=== PATIENT | male | born 1955 | race Caucasian/White ===

== ENCOUNTER → 2019-05-05 14:29 | Outpatient (CLI) | payer OTHER, SELFPAY ==
[2019-05-05 16:37] LABS: Absolute Lymphocyte Count 1.53 X10^3/uL (0.83-4.51); Absolute Neutrophil Count 4.3 X10^3/uL (2.0-7.7); Basophil# 0.05 X10^3/uL; Basophil% 0.8 % (0-1); Eosinophil# 0.17 X10^3/uL; Eosinophils% 2.6 % (0-5); Hematocrit 45.2 % (40-54); Hemoglobin 15.2 g/dL (13.0-16.5); Lymphocyte # 1.53 X10^3/ul (4.0); Lymphocyte % 23.4 % (19-41); Mean Corp Hgb Conc 33.6 g/dL (32-36); Mean Corpuscular Hgb 29.5 pg (27.0-32.0); Mean Corpuscular Volume 87.8 fL (80-94); Mean Platelet Vol. 10.3 fl (6.2-12.0); Monocyte# 0.53 X10^3/uL; Monocyte% 8.1 % (0-10); NRBC Flagged by Analyzer 0 % (0-5); Neutrophil # 4.25 X10^3/uL (2.7-7.7); Neutrophil % 64.8 % (47-70); Platelet Count 228 K/mm3 (150-450); RBC Distribution Width CV 12.4 % (11.6-14.6); RBC Distribution Width SD 39.8 fl (35.1-43.9); Red Blood Count 5.15 M/mm3 (4.6-6.2); White Blood Count 6.6 K/mm3 (4.4-11.0)
[2019-05-05 16:59] LABS: Vitamin D,25 Hydroxy 40.1 ng/mL (29.95-100.01)
[2019-05-05 17:06] LABS: ALB/GLOB Ratio 1.3 RATIO (0.9-2.4); AST(SGOT) 24 U/L (15-37); Alanine Aminotransfer ALT/SGPT 50 U/L (16-61); Albumin, Serum 4.1 g/dL (3.2-5.0); Alkaline Phosphatase 74 U/L (45-117); Anion Gap 7 (5-15); BUN 18 mg/dL (7-18); BUN/Creat Ratio 18.3 RATIO (10-20); Calcium,Total 9.1 mg/dL (8.5-10.1); Chloride 105 mmol/L (98-107); Creatinine, Serum 0.98 mg/dL (0.70-1.30); EST Glomerular Filtration Rate 82 mL/min (>60); Est Glom Filt Rate - Afr Amer 99 mL/min (>60); Globulin 3.1 g/dL (2.2-4.2); Glucose 84 mg/dL (74-106); PSA,Total - Annual Screen 2.68 ng/mL (0.00-4.00); Potassium 3.6 mmol/L (3.5-5.1); Protein, Total 7.2 g/dL (6.4-8.2); Sodium Level 141 mmol/L (136-145); Thyroid Stim Hormone (TSH) 1.39 uIU/mL (0.358-3.74)
== END ==
PROVIDERS: Family Provider Family Medicine Geriatric Medicine; PCP Family Medicine Geriatric Medicine; Visit Provider Family Medicine Geriatric Medicine
DX: E55.9 Vitamin D deficiency, unspecified (principal); I10 Essential (primary) hypertension; Z12.5 Encounter for screening for malignant neoplasm of prostate
CPT/HCPCS: 36415; 80053; 82306; 84153; 84443; 85025; G0103

== ENCOUNTER → 2020-06-04 10:47 | Outpatient (CLI) | payer OTHER, SELFPAY ==
[2020-06-04 12:16] LABS: Absolute Neutrophil Count 3.3 X10^3/uL (2.0-7.7); Basophil# 0.05 X10^3/uL; Basophil% 0.9 % (0-1); Eosinophils% 3.7 % (0-5); Hematocrit 47.1 % (40-54); Hemoglobin 15.7 g/dL (13.0-16.5); Lymphocyte % 27.6 % (19-41); Mean Corp Hgb Conc 33.3 g/dL (32-36); Mean Corpuscular Hgb 28.6 pg (27.0-32.0); Mean Corpuscular Volume 85.9 fL (80-94); Mean Platelet Vol. 10.4 fl (6.2-12.0); Monocyte# 0.35 X10^3/uL; Monocyte% 6.4 % (0-10); NRBC Flagged by Analyzer 0 % (0-5); Neutrophil # 3.33 X10^3/uL (2.7-7.7); Neutrophil % 61.2 % (47-70); Platelet Count 224 K/mm3 (150-450); RBC Distribution Width CV 12.6 % (11.6-14.6); RBC Distribution Width SD 39.8 fl (35.1-43.9); Red Blood Count 5.48 M/mm3 (4.6-6.2); White Blood Count 5.4 K/mm3 (4.4-11.0)
[2020-06-04 12:41] LABS: ALB/GLOB Ratio 1.3 RATIO (0.9-2.4); AST(SGOT) 21 U/L (15-37); Alanine Aminotransfer ALT/SGPT 65 U/L (16-61); Albumin, Serum 4.2 g/dL (3.2-5.0); Alkaline Phosphatase 69 U/L (45-117); Anion Gap 7 (5-15); BUN 15 mg/dL (7-18); BUN/Creat Ratio 15.5 RATIO (10-20); Chloride 106 mmol/L (98-107); Creatinine, Serum 0.97 mg/dL (0.70-1.30); EST Glomerular Filtration Rate 83 mL/min (>60); Est Glom Filt Rate - Afr Amer 100 mL/min (>60); Globulin 3.3 g/dL (2.2-4.2); Glucose 83 mg/dL (74-106); PSA,Total - Annual Screen 2.72 ng/mL (0.00-4.00); Potassium 3.3 mmol/L (3.5-5.1); Protein, Total 7.5 g/dL (6.4-8.2); Sodium Level 139 mmol/L (136-145); Thyroid Stim Hormone (TSH) 2.18 uIU/mL (0.358-3.74)
[2020-06-09 15:22] LABS: Vitamin D,25 Hydroxy 82.3 ng/mL
== END ==
PROVIDERS: PCP Family Medicine Geriatric Medicine; Visit Provider Family Medicine Geriatric Medicine
DX: I10 Essential (primary) hypertension (principal); Z12.5 Encounter for screening for malignant neoplasm of prostate
CPT/HCPCS: 36415; 80053; 82306; 84153; 84443; 85025; G0103

== ENCOUNTER → 2021-06-06 08:59 | Outpatient (CLI) | payer MEDICARE, SELFPAY ==
[2021-06-06 12:30] LABS: Absolute Lymphocyte Count 1.58 X10^3/uL (0.83-4.51); Absolute Neutrophil Count 3.8 X10^3/uL (2.0-7.7); Basophil# 0.06 X10^3/uL; Eosinophil# 0.18 X10^3/uL; Eosinophils% 2.9 % (0-5); Hematocrit 42.3 % (40-54); Hemoglobin 14.6 g/dL (13.0-16.5); Lymphocyte # 1.58 X10^3/ul (0.83-4.51); Lymphocyte % 25.7 % (19-41); Mean Corp Hgb Conc 34.5 g/dL (32-36); Mean Corpuscular Hgb 29.5 pg (27.0-32.0); Mean Corpuscular Volume 85.5 fL (80-94); Mean Platelet Vol. 9.8 fl (6.2-12.0); Monocyte# 0.54 X10^3/uL; Monocyte% 8.8 % (0-10); NRBC Flagged by Analyzer 0 % (0-5); Neutrophil # 3.76 X10^3/uL (2.7-7.7); Neutrophil % 61.1 % (47-70); Platelet Count 252 K/mm3 (150-450); RBC Distribution Width CV 12.1 % (11.6-14.6); RBC Distribution Width SD 37.6 fl (35.1-43.9); Red Blood Count 4.95 M/mm3 (4.6-6.2); White Blood Count 6.2 K/mm3 (4.4-11.0)
[2021-06-06 12:57] LABS: Vitamin D,25 Hydroxy 40.3 ng/mL
[2021-06-06 13:18] LABS: ALB/GLOB Ratio 0.9 RATIO (0.9-2.4); AST(SGOT) 21 U/L (15-37); Alanine Aminotransfer ALT/SGPT 39 U/L (16-61); Albumin, Serum 3.6 g/dL (3.2-5.0); Alkaline Phosphatase 96 U/L (45-117); Anion Gap 6 (5-15); BUN 15 mg/dL (7-18); Calcium,Total 9.5 mg/dL (8.5-10.1); Chloride 105 mmol/L (98-107); EST Glomerular Filtration Rate 80 mL/min (>60); Est Glom Filt Rate - Afr Amer 96 mL/min (>60); Glucose 84 mg/dL (74-106); PSA,Total - Annual Screen 3.04 ng/mL (0.00-4.00); Potassium 3.8 mmol/L (3.5-5.1); Protein, Total 7.6 g/dL (6.4-8.2); Sodium Level 138 mmol/L (136-145); Thyroid Stim Hormone (TSH) 2.78 uIU/mL (0.358-3.74)
== END ==
PROVIDERS: PCP Family Medicine Geriatric Medicine; Visit Provider Family Medicine Geriatric Medicine
DX: E55.9 Vitamin D deficiency, unspecified (principal); I10 Essential (primary) hypertension; Z12.5 Encounter for screening for malignant neoplasm of prostate
CPT/HCPCS: 36415; 80053; 82306; 84153; 84443; 85025; G0103

== ENCOUNTER → 2022-06-07 | Outpatient (CLI) | payer MEDICARE, SELFPAY ==
[2022-06-07 14:07] LABS: Absolute Lymphocyte Count 1.61 X10^3/uL (0.83-4.51); Absolute Neutrophil Count 2.9 X10^3/uL (2.0-7.7); Basophil# 0.06 X10^3/uL; Basophil% 1.2 % (0-1); Eosinophil# 0.14 X10^3/uL; Eosinophils% 2.7 % (0-5); Hematocrit 45.5 % (40-54); Lymphocyte # 1.61 X10^3/ul (0.83-4.51); Mean Corp Hgb Conc 35.2 g/dL (32-36); Mean Corpuscular Hgb 30.7 pg (27.0-32.0); Mean Corpuscular Volume 87.2 fL (80-94); Mean Platelet Vol. 10.3 fl (6.2-12.0); Monocyte# 0.46 X10^3/uL; Monocyte% 8.8 % (0-10); NRBC Flagged by Analyzer 0 % (0-5); Neutrophil # 2.91 X10^3/uL (2.7-7.7); Neutrophil % 55.9 % (47-70); Platelet Count 212 K/mm3 (150-450); RBC Distribution Width SD 41.5 fl (35.1-43.9); Red Blood Count 5.22 M/mm3 (4.6-6.2); White Blood Count 5.2 K/mm3 (4.4-11.0)
[2022-06-07 14:30] LABS: Vitamin D,25 Hydroxy 33.5 ng/mL
[2022-06-07 14:33] LABS: ALB/GLOB Ratio 1.1 RATIO (0.9-2.4); AST(SGOT) 18 U/L (15-37); Alanine Aminotransfer ALT/SGPT 44 U/L (16-61); Albumin, Serum 3.8 g/dL (3.2-5.0); Alkaline Phosphatase 73 U/L (45-117); Anion Gap 3 (5-15); BUN 16 mg/dL (7-18); BUN/Creat Ratio 17.6 RATIO (10-20); Calcium,Total 9.5 mg/dL (8.5-10.1); Chloride 107 mmol/L (98-107); Creatinine, Serum 0.91 mg/dL (0.70-1.30); EST Glomerular Filtration Rate 89 mL/min (>60); Est Glom Filt Rate - Afr Amer 107 mL/min (>60); Globulin 3.6 g/dL (2.2-4.2); Glucose 77 mg/dL (74-106); PSA,Total - Annual Screen 2.56 ng/mL (0.00-4.00); Potassium 3.7 mmol/L (3.5-5.1); Protein, Total 7.4 g/dL (6.4-8.2); Sodium Level 141 mmol/L (136-145); Thyroid Stim Hormone (TSH) 3.13 uIU/mL (0.358-3.74)
== END | disposition home or self-care (01) ==
PROVIDERS: PCP Family Medicine Geriatric Medicine; Visit Provider Family Medicine Geriatric Medicine
DX: I10 Essential (primary) hypertension (principal); E55.9 Vitamin D deficiency, unspecified; Z12.5 Encounter for screening for malignant neoplasm of prostate
CPT/HCPCS: 36415; 80053; 82306; 84153; 84443; 85025; G0103

== ENCOUNTER → 2022-06-13 | Outpatient (CLI) | payer MEDICARE, OTHER, SELFPAY ==
--- NOTE | 2022-06-13 09:50 | LES_PTH ---
PATIENT: MERCEDES MACIAS LOC: POL[facility] U#:[id number] AGE/SX: 66/M ROOM: RE06/13/[address]: Dr. Devon Leigh MD : 1955 BED: DIS: 06/13/2022 SPEC #: [id number] RECD: 06/13/22 11:04 STATUS: LINDY OVIDIO #: [id number] LORENZA: 06/13/22 09:[address]: Devon Leigh Chi DEPT: SURGICAL PATHOLOGY RECD BY: Griselda Raya Tissues: A - Skin of leg, NOS B - Skin of leg, NOS Procedures: Surgery Specimen Level IV HEADER OPERATION: Not noted PRE-OP DIAGNOSIS: Disorder of skin and subcutaneous tissue, unspecified L98.9 TISSUE SUBMITTED: A. Right leg, B. Left leg MICROSCOPIC DIAGNOSIS A. Right leg, biopsy: Seborrheic keratosis. B. Left leg, biopsy: Basal cell carcinoma. See comment. /GRICELDA 06/14/22 COMMENT B. The tumor is present very close to the deep margin of the specimen and focally suspicious for presence of tumor. Correlation with clinical findings and appropriate follow up are necessary. MICROSCOPIC DESCRIPTION Slides are reviewed. GROSS DESCRIPTION A. Received in fixative is one container labeled with the patient's name and designated right leg tissue. The specimen consists of an irregular piece of kimball white skin measuring 1 x 0.8 x 0.1. A kimball brown lesion is noted measuring 0.8 x 0.5 cm. The specimen is inked, serially sectioned and submitted entirely in one cassette. B. Received in fixative is one container labeled with the patient's name and designated left leg tissue. The specimen consists of an irregular piece of kimball white skin measuring 1 x 0.5 x 0.1. A kimball white lesion is noted measuring 0.5 x 0.5 cm. The specimen is inked, serially sectioned and submitted entirely in one cassette. /GRICELDA:nam 06/13/2022 TC:0 CPT:52886 x 2
== END | disposition home or self-care (01) ==
LOC: POLAB3 10:25
PROVIDERS: PCP Family Medicine Geriatric Medicine; Visit Provider Family Medicine Geriatric Medicine
DX: C44.719 Basal cell carcinoma of skin of left lower limb, including hip (principal)
CPT/HCPCS: 88305

== ENCOUNTER → 2023-06-13 | Outpatient (CLI) | payer MEDICARE, OTHER, SELFPAY ==
[2023-06-13 11:10] LABS: Absolute Neutrophil Count 2.8 X10^3/uL (2.0-7.7); Basophil# 0.07 X10^3/uL; Basophil% 1.3 % (0-1); Eosinophil# 0.17 X10^3/uL; Eosinophils% 3.3 % (0-5); Hemoglobin 15.2 g/dL (13.0-16.5); Lymphocyte % 32.7 % (19-41); Mean Corpuscular Hgb 28.8 pg (27.0-32.0); Mean Corpuscular Volume 87.1 fL (80-94); Mean Platelet Vol. 10.4 fl (6.2-12.0); Monocyte# 0.48 X10^3/uL; Monocyte% 9.2 % (0-10); NRBC Flagged by Analyzer 0 % (0-5); Neutrophil # 2.76 X10^3/uL (2.7-7.7); Neutrophil % 53.1 % (47-70); Platelet Count 211 K/mm3 (150-450); RBC Distribution Width CV 12.7 % (11.6-14.6); RBC Distribution Width SD 40.3 fl (35.1-43.9); Red Blood Count 5.28 M/mm3 (4.6-6.2); White Blood Count 5.2 K/mm3 (4.4-11.0)
[2023-06-13 11:16] LABS: Vitamin D,25 Hydroxy 37.1 ng/mL
[2023-06-13 11:22] LABS: ALB/GLOB Ratio 1.2 RATIO (0.9-2.4); AST(SGOT) 24 U/L (15-37); Alanine Aminotransfer ALT/SGPT 53 U/L (16-61); Alkaline Phosphatase 74 U/L (45-117); Anion Gap 3 (5-15); BUN 12 mg/dL (7-18); Calcium,Total 9.4 mg/dL (8.5-10.1); Chloride 107 mmol/L (98-107); EST Glomerular Filtration Rate 79 mL/min (>60); Est Glom Filt Rate - Afr Amer 96 mL/min (>60); Globulin 3.4 g/dL (2.2-4.2); Glucose 92 mg/dL (74-106); PSA,Total - Annual Screen 2.75 ng/mL (0.00-4.00); Potassium 3.9 mmol/L (3.5-5.1); Protein, Total 7.4 g/dL (6.4-8.2); Sodium Level 141 mmol/L (136-145); Thyroid Stim Hormone (TSH) 3.04 uIU/mL (0.358-3.74)
== END | disposition home or self-care (01) ==
LOC: POLAB3 09:04
PROVIDERS: PCP Family Medicine Geriatric Medicine; Visit Provider Family Medicine Geriatric Medicine
DX: I10 Essential (primary) hypertension (principal); E55.9 Vitamin D deficiency, unspecified; Z12.5 Encounter for screening for malignant neoplasm of prostate
CPT/HCPCS: 36415; 80053; 82306; 84153; 84443; 85025; G0103

== ENCOUNTER → 2023-12-17 | Outpatient (CLI) | payer MEDICARE, OTHER, SELFPAY ==
[2023-12-17 17:10] LABS: Absolute Lymphocyte Count 2.03 X10^3/uL (0.83-4.51); Absolute Neutrophil Count 2.7 X10^3/uL (2.0-7.7); Basophil# 0.06 X10^3/uL; Basophil% 1.1 % (0-1); Eosinophil# 0.21 X10^3/uL; Eosinophils% 3.8 % (0-5); Hemoglobin 14.4 g/dL (13.0-16.5); Lymphocyte # 2.03 X10^3/ul (0.83-4.51); Lymphocyte % 36.9 % (19-41); Mean Corp Hgb Conc 33.5 g/dL (32-36); Mean Corpuscular Hgb 28.6 pg (27.0-32.0); Mean Corpuscular Volume 85.5 fL (80-94); Mean Platelet Vol. 9.8 fl (6.2-12.0); Monocyte# 0.49 X10^3/uL; Monocyte% 8.9 % (0-10); NRBC Flagged by Analyzer 0 % (0-5); Neutrophil % 49.1 % (47-70); Platelet Count 199 K/mm3 (150-450); RBC Distribution Width CV 12.8 % (11.6-14.6); RBC Distribution Width SD 39.4 fl (35.1-43.9); Red Blood Count 5.03 M/mm3 (4.6-6.2); White Blood Count 5.5 K/mm3 (4.4-11.0)
--- NOTE | 2023-12-17 17:11 | RAD_ITS ---
STUDY: X-RAY CHEST REASON FOR EXAM: Male, 68 years old. SOB TECHNIQUE: PA and lateral views of the chest. COMPARISON: None. FINDINGS: The lungs are clear and expanded. There is no demonstrated pleural abnormality. Normal size heart. Normal mediastinum and glen. Normal visualized pulmonary arteries. Normal visualized aortic arch and descending thoracic aorta. Normal visualized thoracic spine. Normal visualized ribs, clavicles, and shoulders. There is no demonstrated abnormality of the visualized soft tissue structures of the upper abdomen. RAD/Chest PA and Lateral IMPRESSION: Normal x-ray examination of the chest. Electronically Signed: Faisal Alexis MD at 21:47 EDT ,
[2023-12-17 17:37] LABS: BNP,B-Type NATRIURETIC PEPTIDE 55.8 pg/mL (0-100)
[2023-12-17 17:42] LABS: D-Dimer Quantitative (DVT/PE) < 0.27 FEU/ug/m (0.27-0.49)
[2023-12-17 17:43] LABS: ALB/GLOB Ratio 1.2 RATIO (0.9-2.4); AST(SGOT) 27 U/L (15-37); Alanine Aminotransfer ALT/SGPT 53 U/L (16-61); Albumin, Serum 4.1 g/dL (3.2-5.0); Alkaline Phosphatase 71 U/L (45-117); Anion Gap 5 (5-15); BUN 16 mg/dL (7-18); BUN/Creat Ratio 16.3 RATIO (10-20); CPK Total, Creatine Kinase 248 U/L (39-308); Calcium,Total 9.3 mg/dL (8.5-10.1); Chloride 106 mmol/L (98-107); Creatinine, Serum 0.98 mg/dL (0.70-1.30); EST Glomerular Filtration Rate 80 mL/min (>60); Est Glom Filt Rate - Afr Amer 97 mL/min (>60); Globulin 3.5 g/dL (2.2-4.2); Glucose 86 mg/dL (74-106); Potassium 3.6 mmol/L (3.5-5.1); Protein, Total 7.6 g/dL (6.4-8.2); Sodium Level 139 mmol/L (136-145); Troponin-I HS 10 pg/mL (3.0-78.0)
== END | disposition home or self-care (01) ==
PROVIDERS: PCP Family Medicine Geriatric Medicine; Referring Provider Family Medicine Geriatric Medicine; Visit Provider Family Medicine Geriatric Medicine
DX: R06.02 Shortness of breath (principal); R07.9 Chest pain, unspecified
CPT/HCPCS: 36415; 71046; 80053; 82550; 83880; 84484; 85025; 85379

== ENCOUNTER → 2023-12-20 | Outpatient (CLI) | payer MEDICARE, OTHER, SELFPAY | END | disposition home or self-care (01) | LOC: PSN 12:35 | PROVIDERS: PCP Family Medicine Geriatric Medicine; Referring Provider Family Medicine Geriatric Medicine; Visit Provider Family Medicine Geriatric Medicine | DX: R06.02 Shortness of breath (principal) | CPT/HCPCS: 94060; 94726; 94729 ==

== ENCOUNTER → 2024-01-03 | Outpatient (CLI) | payer MEDICARE, OTHER, SELFPAY ==
--- NOTE | 2024-01-03 06:56 | ECHOD_ITS ---
Reason For Study: SOB Procedure This was a 2D Doppler, Color Flow transthoracic echocardiogram. Exam performed in department. Left Ventricle Mild concentric left ventricular hypertrophy. Normal LV size. The left ventricular ejection fraction is 65 %. Normal diastology for age. Right Ventricle Normal right ventricle. Atria The left atrium is mildly enlarged. Mitral Valve Trivial mitral valve insufficiency. Tricuspid Valve Trivial tricuspid valve insufficiency. Unable to estimate RV systolic pressure due to insufficient tricuspid regurgitant envelope. Aortic Valve Aortic sclerosis, no stenosis. Pulmonic Valve The pulmonic valve is not well visualized. Great Vessels Normal sized aortic root. Pericardium/Pleural No pericardial effusion. MMode/2D Measurements & Calculations LVIDd: 4.5 cm IVSd: 1.2 cm Ao root diam: 3.5 cm LVIDs: 2.9 cm LVPWd: 1.2 cm RVDd: 3.3 cm FS: 35.0 % LAV(MOD-bp): 82.4 ml LVAd ap4: 34.0 cm2 LVAd ap2: 28.9 cm2 LAV(MOD-bp) Indexed: 36.4 ml/m2 LVLd ap4: 8.0 cm LVLd ap2: 8.3 cm LAV(MOD-sp2): 75.9 ml EDV(MOD-sp4): 118.5 ml EDV(MOD-sp2): 81.5 ml LAV(MOD-sp4): 85.3 ml EDV(sp4-el): 122.4 ml EDV(sp2-el): 85.6 ml LVAs ap4: 16.3 cm2 LVAs ap2: 14.5 cm2 LVLs ap4: 6.4 cm LVLs ap2: 6.7 cm ESV(MOD-sp4): 34.8 ml ESV(MOD-sp2): 26.7 ml ESV(sp4-el): 35.3 ml ESV(sp2-el): 26.5 ml EF(MOD-sp4): 70.6 % EF(MOD-sp2): 67.2 % EF(sp4-el): 71.2 % SV(MOD-sp4): 83.7 ml SV(MOD-sp2): 54.8 ml SV(sp4-el): 87.2 ml LA dimension(2D): 4.4 cm LA A4 area: 24.7 cm2 RA A4 area: 17.4 cm2 TAPSE: 2.5 cm Time Measurements MV dec time: 0.15 sec Doppler Measurements & Calculations MV E max rj: 69.5 cm/sec Lat Peak E' Rj: 8.3 cm/sec Med Peak E' Rj: 7.9 cm/sec MV A max rj: 53.7 cm/sec E/E' lat: 8.4 E/E' med: 8.8 MV E/A: 1.3 MV V2 max: 95.1 cm/sec MV P1/2t max rj: 96.0 cm/sec Ao V2 max: 114.9 cm/sec MV max P.6 mmHg MV P1/2t: 54.9 msec Ao max P.3 mmHg MV V2 mean: 43.3 cm/sec MV dec slope: 512.2 cm/sec2 Ao V2 mean: 81.2 cm/sec MV mean P.94 mmHg Ao mean P.9 mmHg MV V2 VTI: 25.4 cm MVA(P1/2t): 4.0 cm2 Ao V2 VTI: 28.3 cm AV (velocity ratio): 0.83 LV V1 max: 100.1 cm/sec PA V2 max: 101.8 cm/sec LV V1 max P.0 mmHg PA V2 mean: 78.9 cm/sec LV V1 mean P.3 mmHg LV V1 mean: 72.2 cm/sec LV V1 VTI: 23.4 cm ECHO/Echo Complete Interpretation Summary Mild concentric left ventricular hypertrophy. The left ventricular ejection fraction is 65 %. The left atrium is mildly enlarged. Aortic sclerosis, no stenosis. Ordering Physician: Devon Leigh Chi Referring Physician: Devon Leigh Chi Performed By: Lynn Rosenthal, DURAN, RVT
--- NOTE | 2024-01-03 12:10 | STRESSREP ---
Stress Test Report Date: 01/03/2024 Procedure: Exercise tolerance test/imaging study Indications: Dyspnea Consent: Per the patient Procedure: The patient exercised on a Gerardo protocol for 6 minutes achieving a peak heart rate of 142 bpm (93% predicted maximal heart rate) with a peak blood pressure 220/72 mmHg and a peak MET capacity of 7.0 METs. The baseline ECG demonstrated sinus rhythm with nonspecific ST changes in inferior leads. The peak exercise ECG demonstrated ischemic ST-T wave changes in inferior and lateral leads. There were no cardiac dysrhythmias pretest, during exercise, or recovery. The functional capacity was considered average. There was no complaint of chest discomfort during exercise or recovery. The examination was discontinued secondary to dyspnea. The patient was injected with 14.1 mCi of technetium 99m Cardiolite and subsequently rest SPECT Cardiolite nuclear imaging was obtained in the horizontal long, vertical long, and short axis views. Post-exercise, the patient was injected with 44.3 mCi of technetium 99m Cardiolite and subsequently stress SPECT Cardiolite nuclear imaging was obtained in the horizontal long, vertical long, and short axis views. A gated Cardiolite study at peak stress was obtained. Rest and stress SPECT Cardiolite nuclear imaging status post realignment, normalization, and attenuation correction, demonstrates small to moderate size reversible basal inferior and apical defect. There is end systolic thickening and brightening. The gated Cardiolite study demonstrates myocardial thickening and inward wall motion. The reported LVEF is 70%. Impression: 1. Technically adequate (percent predicted maximal heart rate greater than 85%) exercise tolerance test 2. Peak exercise ECG with positive ischemic changes 3. There were no cardiac dysrhythmias pretest, during exercise, or recovery 4. Rest and stress SPECT Cardiolite nuclear imaging demonstrate small to moderate reversible basal inferior and apical perfusion defect suggestive of ischemia. 5. The gated Cardiolite study reports an LVEF of 70%. This note was generated with simplifyMDation software. It may contain incorrect words, spelling, and punctuation that were not noted in checking the note before signing.
== END | disposition home or self-care (01) ==
LOC: CVS 06:56
PROVIDERS: PCP Family Medicine Geriatric Medicine; Referring Provider Family Medicine Geriatric Medicine; Visit Provider Family Medicine Geriatric Medicine
DX: R06.02 Shortness of breath (principal); R07.9 Chest pain, unspecified
CPT/HCPCS: 78452; 93017; 93306; A9500; A4216

== ENCOUNTER → 2024-01-10 | Outpatient (CLI) | payer MEDICARE, OTHER, SELFPAY ==
--- NOTE | 2024-01-10 14:03 | RAD_ITS ---
STUDY: X-RAY CHEST REASON FOR EXAM: Male, 68 years old. Catheterization. TECHNIQUE: Frontal and lateral views of the chest. COMPARISON: December 17, 2023 FINDINGS: The lungs are clear and expanded. There is no demonstrated pleural abnormality. Normal size heart. Normal mediastinum and glen. Normal visualized pulmonary arteries. Normal visualized aortic arch and descending thoracic aorta. Stable diffuse mild thoracic spondylosis. Normal visualized ribs, clavicles, and shoulders. No abnormality of the visualized soft tissue structures of the upper abdomen. RAD/Chest PA and Lateral IMPRESSION: Stable chest with no acute or active cardiopulmonary disease. Electronically Signed: Anival Mejia MD at 14:51 EDT ,
[2024-01-10 14:35] LABS: Basophil# 0.05 X10^3/uL; Basophil% 0.9 % (0-1); Eosinophils% 3.7 % (0-5); Hematocrit 42.2 % (40-54); Hemoglobin 14.4 g/dL (13.0-16.5); Lymphocyte % 29.7 % (19-41); Mean Corp Hgb Conc 34.1 g/dL (32-36); Mean Corpuscular Hgb 28.9 pg (27.0-32.0); Mean Corpuscular Volume 84.7 fL (80-94); Mean Platelet Vol. 9.5 fl (6.2-12.0); Monocyte# 0.49 X10^3/uL; Monocyte% 9.1 % (0-10); NRBC Flagged by Analyzer 0 % (0-5); Neutrophil # 3.03 X10^3/uL (2.7-7.7); Neutrophil % 56.4 % (47-70); Platelet Count 193 K/mm3 (150-450); RBC Distribution Width CV 12.6 % (11.6-14.6); RBC Distribution Width SD 38.6 fl (35.1-43.9); Red Blood Count 4.98 M/mm3 (4.6-6.2); White Blood Count 5.4 K/mm3 (4.4-11.0)
[2024-01-10 16:10] LABS: Anion Gap 8 (5-15); BUN 19 mg/dL (7-18); BUN/Creat Ratio 18.6 RATIO (10-20); Calcium,Total 9.3 mg/dL (8.5-10.1); Chloride 105 mmol/L (98-107); Creatinine, Serum 1.02 mg/dL (0.70-1.30); EST Glomerular Filtration Rate 77 mL/min (>60); Est Glom Filt Rate - Afr Amer 93 mL/min (>60); Glucose 121 mg/dL (74-106); Potassium 3.4 mmol/L (3.5-5.1); Sodium Level 137 mmol/L (136-145)
== END | disposition home or self-care (01) ==
LOC: RAD 14:03
PROVIDERS: PCP Family Medicine Geriatric Medicine; Referring Provider Internal Medicine Cardiovascular Disease; Visit Provider Internal Medicine Cardiovascular Disease
DX: R07.9 Chest pain, unspecified (principal); I25.10 Atherosclerotic heart disease of native coronary artery without angina pectoris
CPT/HCPCS: 36415; 71046; 80048; 85025

== ENCOUNTER 2024-01-21 09:19 | Day surgery (SDC) | payer MEDICARE, OTHER, SELFPAY ==
[2024-01-18 09:19] VITALS: BMI 28.8
--- NOTE | 2024-01-21 11:56 | CL.D_ITS ---
Patient Name: MERCEDES MACIAS [facility] Study Date: 01/21/2024 Performing: Moe Quevedo MD Ht: 74 inches 187.96 cm : 1955 Wt: 223.99 lbs 101.6 kg Age: 68 Gender: male BSA: 2.28 PROCEDURE(S) PERFORMED DC01-(94173)LHC/COR/LV CLINICAL PROFILE AND INDICATIONS Indications: Suspected CAD Heart Failure: None Stress/Imaging Date: 01/09/24Stress Test with SPECT MPI: Positive Intermediate Risk CAD Presentations: Stable angina. CONCLUSIONS Triple-vessel disease involving the proximal right coronary artery, prominent obtuse marginal branch, and 2 diagonal vessels. RECOMMENDATIONS Will discuss multivessel PCI versus coronary bypass surgery. DESCRIPTION OF PROCEDURE The patient arrived to the procedure lab. The risks and benefits of the procedure as well as a full description of our services here and current unavailability of surgical backup were fully explained to the patient and/or their significant other prior to the catheterization. The Timeout was completed, verifying the correct patient and procedure. The patient's procedural site was prepped and draped in the usual fashion. Local anesthetic was given subcutaneously to right radial region with Lidocaine 2%. Using a modified Seldinger technique, arterial access was obtained via the right radial artery, a 6Fr sheath was inserted. Right Coronary Artery selective angiography was then performed in multiple views using a 5 Fr. 4.0 [place] catheter. Left Coronary Artery selective angiography was performed in multiple views using a 5 Fr. JL3.5 catheter. Left Ventriculography was performed in PEÑA projection using a 5 Fr. Pigtail catheter. LV to AO pullback pressures were then recorded. CORONARY ANGIOGRAPHY DOMINANCE: Co- Dominant LEFT HEART ASSESSMENT Left Ventricular Ejection Fraction: by LV Gram 55 % Normal LV wall motion Normal Left Ventricular systolic function LEFT MAIN: Angiographically normal LEFT ANTERIOR DESCENDING ARTERY: Medium size vessel with 2 diagonal branches with the first having an ostial 60% and a proximal 70 to 80%, and the second diagonal vessel with proximal 70% stenosis. The left anterior descending artery itself has areas of approximately 50% stenosis present. CIRCUMFLEX ARTERY: Nondominant but medium size vessel with the first obtuse marginal branch with 70% proximal and mid 90% stenosis and a diffusely diseased distal circumflex and AV groove branch with mild diffuse disease RIGHT CORONARY ARTERY: Codominant right coronary artery with proximal 80% stenosis mid 60% stenosis and diffuse distal mild disease. COMPLICATIONS PROCEDURE MEDICATIONS Versed 1 mg IV Fentanyl 50 mcg IV Versed 1 mg IV Oxygen: 2 L/min via nasal cannula SUMMARY OF HEMODYNAMIC DATA Time AIR REST ECG 09:49:32 AO 142/71 (98) SA 11:23:39 LV 140/8, 19 11:39:06 LV 137/8, 19 11:39:15 LV 0/23, 0 11:40:01 LV 125/6, 19 11:40:09 LVp 131/7, 19 11:40:16 AOp 141/57 (90) 11:40:23 Signed By Moe Quevedo MD On 01/21/2024 11:55:47 Moe Quevedo MD
== END 2024-01-21 13:40 | disposition home or self-care (01) ==
PROVIDERS: PCP Family Medicine Geriatric Medicine; Referring Provider Internal Medicine Cardiovascular Disease; Visit Provider Internal Medicine Cardiovascular Disease
DX: I25.118 Atherosclerotic heart disease of native coronary artery with other forms of angina pectoris (principal); Z79.82 Long term (current) use of aspirin; Z79.899 Other long term (current) drug therapy; I10 Essential (primary) hypertension; E78.00 Pure hypercholesterolemia, unspecified; Z87.891 Personal history of nicotine dependence; R94.39 Abnormal result of other cardiovascular function study; Z79.02 Long term (current) use of antithrombotics/antiplatelets
CPT/HCPCS: 36415; 84132; 93458; 99152; 99153; J7040; Q9967; C1769; C1894

== ENCOUNTER 2024-02-08 11:28 | Observation (INO) | payer MEDICARE, OTHER, SELFPAY ==
[2024-02-07 08:06] VITALS: BMI 28.8
--- NOTE | 2024-02-08 09:50 | EKG12_ITS ---
Test Reason : POST PCI Blood Pressure : / mmHG Vent. Rate : 051 BPM Atrial Rate : 051 BPM P-R Int : 214 ms QRS Dur : 086 ms QT Int : 422 ms P-R-T Axes : 053 -25 -15 degrees QTc Int : 388 ms Sinus bradycardia with 1st degree A-V block Otherwise normal ECG When compared with ECG of 09-FEB-2024 05:28, Premature ventricular complexes are no longer Present Confirmed by SALBADOR BRENNER, LIS ([id number]), manager editorial BETSY CLARK ([id number]) on 02/29/2024 9:41:23 AM Referred By: Hannah Freeman Confirmed By:SANA FREEMAN MD
--- NOTE | 2024-02-08 11:30 | EKG12_ITS ---
Test Reason : Blood Pressure : / mmHG Vent. Rate : 064 BPM Atrial Rate : 064 BPM P-R Int : 220 ms QRS Dur : 088 ms QT Int : 396 ms P-R-T Axes : 049 -39 -01 degrees QTc Int : 408 ms Sinus rhythm with 1st degree A-V block Left axis deviation Abnormal ECG When compared with ECG of 08-FEB-2024 09:50, MANUAL COMPARISON REQUIRED, DATA IS UNCONFIRMED Confirmed by SALBADOR BRENNER, LIS ([id number]), desk editor BETSY CLARK ([id number]) on 02/13/2024 10:06:24 AM Referred By: Hannah Freeman Confirmed By:SANA FREEMAN MD
--- NOTE | 2024-02-08 11:39 | CRPHASE1 ---
Patient Communication Patient Information Former Patient:: Phase I PHII Cardiac Rehab Discussed with Patient:: Yes Guide to Cardiac Rehab Given to Patient:: Yes Cardiac Rehab Facility Choice List Given to Patient:: Yes Communication to Cardiac Rehab Janitorial Tech:: Hannah Freeman Sessions:: 36 sessions - 3 days/wk, 12 weeks Cardiac Rehabilitation Info Program Information Cardiac Rehabilitation Program Information: Cardiac Rehab The cardiac rehab team at [facility] consists of highly skilled exercise physiologists, nurses, respiratory therapists and physicians working together with you. Our purpose is to help you have a full recovery and achieve the goals you set for yourself. Over the years many of our patients have returned to activities they assumed they would never do again! We can help restore your confidence and motivation to make lifestyle changes that can have a significant impact on your health and quality of life! We can help answer questions and concerns you may have about exercise, lifestyle, medications, diet, stress and anxiety which are common following a hospitalization. WE monitor ECG and vital signs during exercise and discuss your progress with you and report to your physician(s). Cardiac Rehab is proven to help reduce readmissions, improve functional capacity and lower recurrence of problems with your heart. Our Cardiac Rehab program is Certified by the [place] [employer]-Vascular and Pulmonary [employer] (AACVPR) and Accredited by the [place] [employer] through our [facility]. You can contact us at . We invite you to call us with your questions or to get started in our program. If you have other questions or concerns be sure to ask your physician/provider during your follow-up visit. WE look forward to seeing you!
--- NOTE | 2024-02-08 11:39 | CRPH1.INSTRU ---
General Education Discussed with Patient CAD and cardiac anatomy and function:: Patient communicates acknowledgment Explanation of diagnoses and procedures:: Patient communicates acknowledgment Sign/Symptoms of NC:: Patient communicates acknowledgment Antiplatelet therapy: Patient communicates acknowledgment Proper use of NTG-SL: Patient communicates acknowledgment Emergency procedures and activation of EMS: Patient communicates acknowledgment Compliance of all prescribed medications: Patient communicates acknowledgment Smoking Risk Factors Patient Nicotine/Smoking Risk Factors Are:: Non-smoker Response Code Nicotine/Smoking Response Code:: Patient communicates acknowledgment Dyslipidemia Recommendations Recommendations Include:: Lipid profile not available Response Code Dyslipidemia Response Code:: Patient communicates acknowledgment Overweight/Obesity Risk Factors Patient Overweight/Obesity Risk Factors Are:: BMI Normal [24-29 & > 65 years old] Response Code Overweight/Obesity:: Patient communicates acknowledgment Hypertension Recommendations Recommendations Include:: Maintain BP <130/85 Response Code Hypertension:: Patient communicates acknowledgment Heart Disease Recommendations Recommendations Include:: Educated family members of their risk and Educated family members of importance of prevention of heart disease Response Code Heart Disease Response Code:: Patient communicates acknowledgment Diabetes Risk Factors Patient Diabetes Risk Factors Are:: No documented hx of diabetes Response Code Diabetes:: Patient communicates acknowledgment Metabolic Syndrome Recommendations Recommendations Include:: Does not meet criteria Sedentary Recommendations Recommendations Include:: Monitored Outpatient Cardiac Rehab Response Code Sedentary Response Code:: Patient communicates acknowledgment Stress Recommendations Recommendations Include:: Identification of stressors, and assessment of coping skills and Stress management techniques Response Code Stress Response Code:: Patient communicates acknowledgment
--- NOTE | 2024-02-08 11:47 | CL.I_ITS ---
Patient Name: MERCEDES MACIAS [facility] Study Date: 02/08/2024 Performing: Tree Freeman MD Ht: 74 inches 187.96 cm : 1955 Wt: 223.99 lbs 101.6 kg Age: 68 Gender: male BSA: 2.28 PROCEDURE(S) PERFORMED IC12-(81668/C9600)FREDY W/WO PTCA, SINGLE CORONARY ARTERY IC10-(40377)FFR, CORONARY OR GRAFT, INITIAL VESSEL CLINICAL PROFILE AND CO-MORBIDITIES Indications: Unstable angina, known CAD for further evaluation to decide between CABG and PCI, abnormal stress test Heart Failure: None CONCLUSIONS iFR in the LAD was consistent with stenosis that can be treated medically at this time. Successful drug-eluting stent placement to OM1 RECOMMENDATIONS Aspirin 81 mg p.o. daily. Brilinta 90 mg p.o. twice daily. Patient should return for PCI of RCA in about 2 to 3 weeks. DESCRIPTION OF PROCEDURE The patient arrived to the procedure lab. The risks and benefits of the procedure as well as a full description of our services here and current unavailability of surgical backup were fully explained to the patient and/or their significant other prior to the catheterization. The Timeout was completed, verifying the correct patient and procedure. The patient's procedural site was prepped and draped in the usual fashion. Local anesthetic was given subcutaneously to right radial region with Lidocaine 2%. Using a modified Seldinger technique, arterial access was obtained via the right radial artery, a 6Fr sheath was inserted.. XB 3.0 Guide catheter was inserted and engaged into the LCA. The FFR/iFR wire was inserted. Pressures and FFR/iFR were then recorded. iFR Ratio: 0.91 IFR Wire Guide wire was advanced to the Circ Emerge 2.00x20 Balloon catheter was inserted. PTCA balloon inflated at 6 atms for 12 secs. Angiogram performed post balloon dilatation. Ning [place] 2.25x26 Drug Eluting stent was inserted. Drug Eluting stent was removed intact, failed to cross lesion Emerge 2.50x12 Balloon catheter was inserted. PTCA balloon inflated at 10 atms for 14 secs. Angiogram performed post balloon dilatation. Gladwin Glas[place] 2.25x26 Drug Eluting stent was inserted. Angiogram performed post stent deployment. Gladwin Fronter 2.5x18 Drug Eluting stent was inserted. Angiogram performed post stent deployment. The arterial sheath was pulled and a TR Band was applied for hemostasis w/ 10ml air INTERVENTION INFORMATION LESION SITE: LAD (Mid) Lesion Devices: Cordis 6 Fr XB3.0 100cm Guide Catheter [email or web address] Coronary FFR Wire LESION SITE: 1st OM (Mid) Lesion Complexity: High/C, chronic total occlusion: No, lesion at bifurcation: Yes, thrombus present: No, lesion length: 42 mm, culprit lesion: Yes, Previously treated lesion: No Pre Stenosis: 90 % Pre intervention LUPIS flow: 3 PROCEDURE: Drug Eluting Stent with pre and post dilatation iFR of the LAD was 0.91. High risk PCI of the OM1 was then performed with drug-eluting stents without any complications. Post Stenosis: 0 % Post intervention LUPIS flow: 3 Lesion Devices: Cordis 6 Fr XB3.0 100cm Guide Catheter [email or web address] Coronary FFR Wire Terence Sci EMERGE MR 2.00x20 BALLOON Medtronic 2.25 x 26 NING FRONTIER FREDY Terence Sci EMERGE MR 2.50x12 BALLOON Medtronic 2.50 x 18 NING FRONTIER FREDY COMPLICATIONS No Complications PROCEDURE MEDICATIONS Versed 1 mg IV Fentanyl 50 mcg IV Oxygen: 2 L/min via nasal cannula Brilinta 180 mg PO @ 02/08/2024 10:36:36 Heparin given IA 02/08/2024 10:24:42 Heparin 4000 unit(s) IV 02/08/2024 10:25:43 Verapamil 2.5mg, Ntg 100mcgs, 3000 units of Heparin given IA 02/08/2024 10:24:42 SUMMARY OF HEMODYNAMIC DATA Time AIR REST ECG 08:34:47 AO 132/61 (86) SA 10:27:23 Signed By Tree Freeman MD On 02/08/2024 11:47:03 Tree Freeman MD
[2024-02-08 12:05] VITALS: BP 150/76; PULSE 67; RESP 18; O2SAT 99
[2024-02-08 12:13] VITALS: BMI 28.3
[2024-02-08 12:35] VITALS: BP 160/87; PULSE 68; RESP 18; O2SAT 98
[2024-02-08 13:05] VITALS: BP 150/80; PULSE 69; RESP 18; TEMP 36.5; O2SAT 98
[2024-02-08 16:15] VITALS: BP 145/78; PULSE 61; RESP 18; TEMP 36.6; O2SAT 99
--- NOTE | 2024-02-08 16:54 | CASEMGMT ---
EMILY BRYSON NOTE: EMILY BRYSON to room. Introduced self and role. Provided pt and family with Brilinta 30-day free trial offer card and instructed on use. Questions answered. They were made aware if refills are not affordable, to discuss possible other options w/assistant bookkeeper. They voice understanding. Pt and family would like to get meds @ dc from [facility] retail pharmacy. They were made aware Brilinta 30-day card would be applied by [facility] pharmacy. Mariusz PAREKHN EMILY BRYSON
[2024-02-08 21:06] VITALS: BP 161/73; PULSE 69; RESP 18; TEMP 36.7; O2SAT 97
[2024-02-08] MEDS: TICAGRELOR 90 MG TABLET PO (21:12)
[2024-02-09 03:00] VITALS: BP 158/73; PULSE 61; RESP 18; TEMP 36.4; O2SAT 95
[2024-02-09 05:54] LABS: Hemoglobin 13.6 g/dL (13.0-16.5); Mean Corpuscular Hgb 28.7 pg (27.0-32.0); Mean Corpuscular Volume 84.4 fL (80-94); Mean Platelet Vol. 9.6 fl (6.2-12.0); Platelet Count 159 K/mm3 (150-450); RBC Distribution Width CV 12.2 % (11.6-14.6); RBC Distribution Width SD 37.2 fl (35.1-43.9); Red Blood Count 4.74 M/mm3 (4.6-6.2); White Blood Count 5.9 K/mm3 (4.4-11.0)
[2024-02-09 06:50] LABS: ALB/GLOB Ratio 1.1 RATIO (0.9-2.4); AST(SGOT) 22 U/L (15-37); Alanine Aminotransfer ALT/SGPT 43 U/L (16-61); Albumin, Serum 3.3 g/dL (3.2-5.0); Alkaline Phosphatase 70 U/L (45-117); Anion Gap 7 (5-15); BUN 18 mg/dL (7-18); BUN/Creat Ratio 16.7 RATIO (10-20); Calcium,Total 8.7 mg/dL (8.5-10.1); Chloride 107 mmol/L (98-107); Creatinine, Serum 1.08 mg/dL (0.70-1.30); EST Glomerular Filtration Rate 72 mL/min (>60); Est Glom Filt Rate - Afr Amer 87 mL/min (>60); Estimated Creatinine Clearance 82.74 ml/min; Globulin 3.1 g/dL (2.2-4.2); Glucose 105 mg/dL (74-106); Potassium 3.8 mmol/L (3.5-5.1); Protein, Total 6.4 g/dL (6.4-8.2); Sodium Level 140 mmol/L (136-145)
[2024-02-09 07:00] VITALS: PULSE 61
[2024-02-09 07:33] VITALS: O2SAT 98
[2024-02-09 09:00] VITALS: BP 157/75; PULSE 69; RESP 16; TEMP 36.6; O2SAT 96
--- NOTE | 2024-02-09 10:00 | EKG12_ITS ---
Test Reason : AM EKG Blood Pressure : / mmHG Vent. Rate : 067 BPM Atrial Rate : 067 BPM P-R Int : 196 ms QRS Dur : 082 ms QT Int : 386 ms P-R-T Axes : 050 -28 -14 degrees QTc Int : 407 ms Sinus rhythm with frequent Premature ventricular complexes Otherwise normal ECG When compared with ECG of 08-FEB-2024 13:46, MANUAL COMPARISON REQUIRED, DATA IS UNCONFIRMED Confirmed by SALBADOR BRENNER, LIS ([id number]), field map editor BETSY CLARK ([id number]) on 02/13/2024 10:05:44 AM Referred By: Hannah Freeman Confirmed By:SANA FREEMAN MD
[2024-02-09 10:20] VITALS: BP 157/75; PULSE 69
[2024-02-09] MEDS: Losartan Potassium 50 MG Tablet PO (10:20)
[2024-02-09] MEDS: hydroCHLOROthiazide 25 MG Tablet PO (10:20)
[2024-02-09] MEDS: Metoprolol(XL)Succ 50 MG Tablet PO (10:20)
[2024-02-09] MEDS: Aspirin E.C. 81 MG Tablet PO (10:20)
[2024-02-09] MEDS: TICAGRELOR 90 MG TABLET PO (10:21)
--- NOTE | 2024-02-09 14:23 | DS.PCM_ITS ---
Providers Date of Admission: 02/08/24 Date of Discharge: 02/09/24 Primary Care Physician: Dr. Devon Leigh MD Reason For Visit: CAD S/P PCI Medications at Discharge Home Medications Nattokinase dietary supplement PO 01/10/24 aspirin 81 mg tablet,delayed release 81 mg PO DAILY #30 tabs 01/10/24 metoprolol succinate 50 mg tablet,extended release 24 hr 50 mg PO DAILY #30 tabs 01/10/24 valsartan 160 mg-hydrochlorothiazide 25 mg tablet 1 tab PO QDAY 01/10/24 ticagrelor 90 mg tablet (Brilinta) 90 mg PO BID #30 tabs 02/09/24 Hospital Course Summary of Care Provided Hospital Course: Patient underwent PCI of circumflex without any complications. He is being discharged home in stable condition. 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 He also needs staged PCI of RCA in about 2 to 3 weeks. Weight / BMI Weight Weight: 220 lb 10.923 oz Body Mass Index (BMI) 28.3 ABG / Lab / Microbiology Data 02/09/24 05:48 02/09/24 05:48 Laboratory: Laboratory Results - last 24 hr 02/09/24 05:48: WBC 5.9, RBC 4.74, Hgb 13.6, Hct 40.0, MCV 84.4, MCH 28.7, MCHC 34.0, RDW Std Deviation 37.2, RDW Coeff of Taras 12.2, Plt Count 159, MPV 9.6, Sodium 140, Potassium 3.8, Chloride 107, Carbon Dioxide 26.0, Anion Gap 7, BUN 18, Creatinine 1.08, Estim Creat Clear Calc 82.74, Est GFR (MDRD) Af Amer 87, Est GFR (MDRD) Non-Af 72, BUN/Creatinine Ratio 16.7, Glucose 105, Calcium 8.7, Total Bilirubin 0.60, AST 22, ALT 43, Alkaline Phosphatase 70, Total Protein 6.4, Albumin 3.3, Globulin 3.1, Albumin/Globulin Ratio 1.1 Meaningful Use Info Meaningful Use Meaningful Use Diagnoses (Choose all that apply): None applicable Ischemic Stroke Statin Dosing Therapy Reference: STATIN DOSE THERAPY REFERENCE: * Patients > 75 years receive moderate or high dose statin therapy. * Patients 75 years or YOUNGER should receive HIGH intensity statin dose unless contraindicated. You will be required to document reason for non-treatment if statin daily dose does not meet guidelines. HIGH DOSE STATIN THERAPY DAILY Atorvastatin > than or = to 40 mg Rosuvastatin > than or = to 20 mg Amlodipine + Atorvastatin > than or = to 2.5/40 mg Ezetimibe + Simvastatin 10/80 mg Simvastatin 80mg Discharge Plan Admission Admit Date/Time: 02/08/24 11:28 Primary Reason for Your Visit: CAD for PCI of LCx Attending Provider: Hannah Freeman Primary Care Provider: Devon Leigh Chi Discharge Orders/Prescriptions Prescriptions: Continued valsartan-hydrochlorothiazide 160-25 mg tablet 1 tab PO QDAY Nattokinase dietary supplement PO aspirin 81 mg tablet,delayed release (DR/EC) 81 mg PO DAILY Qty: 30 0RF metoprolol succinate 50 mg tablet extended release 24 hr 50 mg PO DAILY Qty: 30 11RF Discontinued clopidogrel [Plavix] 75 mg tablet 75 mg PO DAILY No Action Brilinta 90 mg tablet 90 mg PO BID Qty: 30 11RF Referrals / Follow Up: Devon Leigh Chi, MD [Primary Care Provider] - Disposition Disposition (needs filled in before D/C Order can be placed): Home, Self Care
--- NOTE | 2024-02-09 14:34 | CASEMGMT ---
EMILY BRYSON NOTE: ?MEDRANO form explained re: Observation status for treatment of CAD w/PCI, stent placement.? Explained hospitalization will be paid per his insurance policy for Outpatient billing?and condition will continue to be evaluated for Inpt necessity. Also let pt know that [facility] sends paper in the billing packet with their phone number if questions arise. Discussed Pharmacy section of MEDRANO form and self administered medication guideline.? Pt verbalizes understanding and does not have further questions. ?Form signed, copy made and placed in chart, and original given to pt. Mariusz DYE RN CM
[2024-02-09 15:00] VITALS: BP 149/81; PULSE 63; PULSE 64; RESP 16; TEMP 36.5; O2SAT 98
== END 2024-02-09 14:15 | disposition home or self-care (01) ==
LOC: PCU 12:06
PROVIDERS: Admitting Provider Specialist; PCP Family Medicine Geriatric Medicine; Referring Provider Specialist; Visit Provider Specialist
DX: I25.110 Atherosclerotic heart disease of native coronary artery with unstable angina pectoris (principal); R94.39 Abnormal result of other cardiovascular function study; Z79.02 Long term (current) use of antithrombotics/antiplatelets; Z79.82 Long term (current) use of aspirin; Z79.899 Other long term (current) drug therapy; I10 Essential (primary) hypertension; E78.00 Pure hypercholesterolemia, unspecified; Z87.891 Personal history of nicotine dependence
CPT/HCPCS: 36415; 80053; 85027; 92928; 93005; 93571; 99152; 99153; 99221; J7040; Q9967; C1725; C1769; C1874; C1887; C1894; C9600; G0378

== ENCOUNTER 2024-02-26 08:23 | Day surgery (SDC) | payer MEDICARE, OTHER, SELFPAY ==
--- NOTE | 2024-02-15 14:38 | HP.PCM_ITS ---
History and Physical Date of Admission: 02/26/24 Patient is a 68-year-old pleasant white male coming in for a heart catheterization. The patient was evaluated by the primary service after he noticed that cutting the grass this summer was taking a lot longer and then about 2 weeks ago he had an episode where he could not finish doing to push more part of his lawn care. He had to stop and have his complete work. He then went at a much slower pace the next time he cut the grass and had a recurrence of the same symptoms. He describes this as a chest tightness associated with some lightheadedness and shortness of breath and added to the right side of his face and jaw became stiff. Once he rested it resolved when he tried doing the grass cutting again it recurred but to a much less degree. The patiently subsequently underwent a stress test where he went 6 minutes achieving 93% of age-predicted heart rate at [address] he had ischemic [address]-T wave changes in the inferior and lateral leads with activity in the nuclear portion demonstrated a small to moderate reversible basal inferior and apical perfusion defect. Had an echo done on the same day January 03, 2024. That showed normal LV function EF of 65% with no wall motion abnormality he had mild left atrial enlargement there was trivial valvular heart disease he is aortic valve sclerosis with no stenosis. Patient's cardiac risk factors include hypertension, hyperlipidemia he is intolerant to all statins and is tried all of them. 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 There is no family history of early coronary disease and he is not diabetic. Patient denies any syncope or near syncope denies any lower extremity edema d enies any claudication. He has no signs or symptoms of congestive failure. Intake Vital Signs: See EMR Intake Visit Reasons: [facility] Mess Cook Required: No Accompanied by: Self Is patient in pain?: No Allergies [id number]-UvX Reductase Inhibitor Adverse Reaction (Verified 01/10/24 13:02) Pain in joints Medications: See EMR Ejection fraction %: 65 [facility] Medical History Essential hypertension Hyperlipidemia Drug-induced myopathy Vitamin D deficiency Skin cancer, basal cell Shortness of breath Dyspnea on exertion Chest pain CAD (coronary atherosclerotic disease) Family History Mother Hypertension Brain aneurysm Social History Smoking Status: Former smoker how long ago did patient quit smokin months alcohol intake: never substance use type: does not use caffeine: Yes ROS Const Const: Negative for fatigue or weakness ENT ENT: Negative for dizziness or balance problems Cardio Chest Pain: Yes Palpitations: Yes Muscle aches with walking: None Resp Respiratory: Positive for SOB with activity; Negative for SOB at rest or SOB orthopnea\SOB lying down GI GI: Negative nausea, vomiting or heartburn Musc Musc: Negative for muscle weakness or balance problems Neuro Neuro: Negative for dizziness, lightheadedness, near syncope, syncope or weakness Endo Endo: Negative for fatigue Cardiology Exam Const Appearance: cooperative, comfortable, no acute distress and well developed Head Head: normal to inspection Eyes General: appearance normal, both eyes and all related structures Neck Neck: no JVD Carotids: Negative bruit Chest Chest inspection: normal inspection of the chest Auscultation: Bilateral: Clear to Auscultation Cardio Rate: regular rate Rhythm: regular rhythm Heart sounds: S1 normal and S2 normal; Negative rub, gallop or murmur GI GI: normal to inspection Neuro General: patient alert and patient oriented x3 Skin Skin: no rashes or lesions noted Extremities Pulses: Normal: Right Dorsalis Pedis Pulse, Left Dorsalis Pedis Pulse, Right Posterior Tibial Pulse, Left Posterior Tibial Pulse, Right Radial Pulse and Left Radial Pulse Lower Extremity Edema: None: Bilateral Psych Psychological: normal affect Supplemental Info Supplemental Information Assessment and Plan Assessment and Plan (1) Chest pain: Status: Acute Qualifiers: Chest pain type: precordial pain Qualified Code(s): R07.2 - Precordial pain Plan: The patient's symptoms of chest discomfort described as a tightness and heaviness associated with dyspnea on exertion lightheadedness and jaw stiffness that are reproducible with activity or highly suggestive of ischemic coronary artery disease. Since the patient has curtailed his outdoor activities he has not had a recurrence of the symptoms. He had LHC on 02/08/2024 that showed iFR in the LAD was consistent with stenosis that can be treated medically and successful drug-eluting stent placement to OM1. It was recommended to undergo staged PCI to RCA in 2-3 weeks. (2) Abnormal stress ECG with treadmill: Status: Acute Plan: The patient stress test was abnormal and distribution of the right coronary artery. He will proceed with staged intervention. (3) Essential hypertension: Status: Acute Plan: We will continue to monitor and adjust medications as needed. (4) Hyperlipidemia: Status: Acute Qualifiers: Hyperlipidemia type: pure hypercholesterolemia Qualified Code(s): E78.00 - Pure hypercholesterolemia, unspecified Plan: He may need to trial Zetia or PCSK9 inhibitor given CAD.
--- NOTE | 2024-02-19 18:03 | HP.PCM_ITS ---
History and Physical Date of Admission: 02/26/24 Patient is a 60-year-old pleasant white male who established with us recently for an urgent new patient visit. He is accompanied by his , Janee. The patient was evaluated by the primary service after he noticed that cutting the grass this summer was taking a lot longer and then about 2 weeks ago he had an episode where he could not finish doing to push more part of his lawn care. He had to stop and have his complete work. He then went at a much slower pace the next time he cut the grass and had a recurrence of the same symptoms. He describes this as a chest tightness associated with some lightheadedness and shortness of breath and added to the right side of his face and jaw became stiff. Once he rested it resolved when he tried doing the grass cutting again it recurred but to a much less degree. The patiently subsequently underwent a stress test where he went 6 minutes achieving 93% of age-predicted heart rate at 7 METS he had ischemic ST-T wave changes in the inferior and lateral leads with activity in the nuclear portion demonstrated a small to moderate reversible basal inferior and apical perfusion defect. Had an echo done on the same day January 03, 2024. That showed normal LV function EF of 65% with no wall motion abnormality he had mild left atrial en largement there was trivial valvular heart disease he is aortic valve sclerosis with no stenosis. He did undergo a diagnostic stress test on 02/08/2024. This demonstrated iFR in the LAD was consistent with stenosis that can be treated medically at this time. Successful drug-eluting stent placement to OM1. Patient should return for PCI of RCA in about 2 to 3 weeks. Patient's cardiac risk factors include hypertension, hyperlipidemia he is intolerant to all statins and is tried all of them. 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 There is no family history of early coronary disease and he is not diabetic. Patient denies any syncope or near syncope denies any lower extremity edema denies any claudication. He has no signs or symptoms of congestive failure. [facility] Medical History Essential hypertension Hyperlipidemia Drug-induced myopathy Vitamin D deficiency Skin cancer, basal cell Shortness of breath Dyspnea on exertion Chest pain CAD (coronary atherosclerotic disease) Family History Mother Hypertension Brain aneurysm Social History Smoking Status: Former smoker how long ago did patient quit smokin months alcohol intake: never substance use type: does not use caffeine: Yes ROS Const Const: Negative for fatigue or weakness ENT ENT: Negative for dizziness or balance problems Cardio Chest Pain: Yes Palpitations: Yes Muscle aches with walking: None Resp Respiratory: Positive for SOB with activity; Negative for SOB at rest or SOB orthopnea\SOB lying down GI GI: Negative nausea, vomiting or heartburn Musc Musc: Negative for muscle weakness or balance problems Neuro Neuro: Negative for dizziness, lightheadedness, near syncope, syncope or weakness Endo Endo: Negative for fatigue Cardiology Exam Const Appearance: cooperative, comfortable, no acute distress and well developed Head Head: normal to inspection Eyes General: appearance normal, both eyes and all related structures Neck Neck: no JVD Carotids: Negative bruit Chest Chest inspection: normal inspection of the chest Auscultation: Bilateral: Clear to Auscultation Cardio Rate: regular rate Rhythm: regular rhythm Heart sounds: S1 normal and S2 normal; Negative rub, gallop or murmur GI GI: normal to inspection Neuro General: patient alert and patient oriented x3 Skin Skin: no rashes or lesions noted Extremities Pulses: Normal: Right Dorsalis Pedis Pulse, Left Dorsalis Pedis Pulse, Right Posterior Tibial Pulse, Left Posterior Tibial Pulse, Right Radial Pulse and Left Radial Pulse Lower Extremity Edema: None: Bilateral Psych Psychological: normal affect Assessment & Plan Assessment/Plan (1) Stented coronary artery: (2) Hx of cardiac catheterization: (3) CAD (coronary atherosclerotic disease): PLAN: Plan Patient will undergo staged PCI to his RCA. Follow-up will be based upon findings.
[2024-02-25 11:01] VITALS: BMI 28.8
--- NOTE | 2024-02-26 10:51 | CRPHASE1 ---
Patient Communication Patient Information Former Patient:: Phase I PHII Cardiac Rehab Discussed with Patient:: Yes Guide to Cardiac Rehab Given to Patient:: Yes Cardiac Rehab Facility Choice List Given to Patient:: Yes Communication to Cardiac Rehab Choice Program [facility] CR PHII:: Communication Given to CR and Refer to [facility] Choice Program Other:: Communication Given to CR Sales Planning Coordinator:: Hannah Freeman Refer Phase II Cardiac Rehab:: Yes Post Discharge Choice Letter Given to Patient:: Yes PHII Cardiac Rehab Referral:: [facility] Phase I Charge:: Level I - Education Medical/Surgical History Medical History CAD:: Yes Congestive Heart Failure: Hypertension:: Yes Dyslipidemia:: Yes CVA/TIA: Surgical History PTCA:: Yes Ambulation Ambulation Notes:: walks independently Cardiac Rehabilitation Info Program Information Cardiac Rehabilitation Program Information: Cardiac Rehab The cardiac rehab team at [facility] consists of highly skilled exercise physiologists, nurses, respiratory therapists and physicians working together with you. Our purpose is to help you have a full recovery and achieve the goals you set for yourself. Over the years many of our patients have returned to activities they assumed they would never do again! We can help restore your confidence and motivation to make lifestyle changes that can have a significant impact on your health and quality of life! We can help answer questions and concerns you may have about exercise, lifestyle, medications, diet, stress and anxiety which are common following a hospitalization. WE monitor ECG and vital signs during exercise and discuss your progress with you and report to your physician(s). Cardiac Rehab is proven to help reduce readmissions, improve functional capacity and lower recurrence of problems with your heart. Our Cardiac Rehab program is Certified by the [place] [employer] Pulmonary [employer] (AACVPR) and Accredited by the [place] [employer] through our [facility]. You can contact us at . We invite you to call us with your questions or to get started in our program. If you have other questions or concerns be sure to ask your physician/provider during your follow-up visit. WE look forward to seeing you!
--- NOTE | 2024-02-26 10:54 | CRPH1.INSTRU ---
General Education Discussed with Patient CAD and cardiac anatomy and function:: Patient communicates acknowledgment, Family communicates acknowledgment, Patient returns demonstration and Family returns demonstration Explanation of diagnoses and procedures:: Patient communicates acknowledgment, Family communicates acknowledgment, Patient returns demonstration and Family returns demonstration Sign/Symptoms of VT:: Patient communicates acknowledgment, Family communicates acknowledgment, Patient returns demonstration and Family returns demonstration Antiplatelet therapy: Patient communicates acknowledgment, Family communicates acknowledgment, Patient returns demonstration and Family returns demonstration Proper use of NTG-SL: Patient communicates acknowledgment, Family communicates acknowledgment, Patient returns demonstration and Family returns demonstration Emergency procedures and activation of EMS: Patient communicates acknowledgment, Family communicates acknowledgment, Patient returns demonstration and Family returns demonstration Compliance of all prescribed medications: Patient communicates acknowledgment, Family communicates acknowledgment, Patient returns demonstration and Family returns demonstration Smoking Risk Factors Patient Nicotine/Smoking Risk Factors Are:: Never smoked Dyslipidemia Recommendations Recommendations Include:: Lipid profile not available and Therapeutic Lifestyle Change dietary guidelines Response Code Dyslipidemia Response Code:: Patient communicates acknowledgment, Family communicates acknowledgment, Patient returns demonstration and Family returns demonstration Overweight/Obesity Risk Factors Patient Overweight/Obesity Risk Factors Are:: Overweight = 26-29 (28.8) Recommendations Recommendations Include:: Weight loss of 5-10%, Reduced calorie diet and Exercise 5-7 times/week Response Code Overweight/Obesity:: Patient communicates acknowledgment, Family communicates acknowledgment, Patient returns demonstration and Family returns demonstration Hypertension Recommendations Recommendations Include:: Maintain BP <130/85, DASH dietary guidelines and Decrease/maintain normal body weight Response Code Hypertension:: Patient communicates acknowledgment, Family communicates acknowledgment, Patient returns demonstration and Family returns demonstration Heart Disease Risk Factors Patient Heart Disease Risk Factors Are:: Family history of heart disease < 65 years old and Previous cardiac event Recommendations Recommendations Include:: Educated family members of their risk and Educated family members of importance of prevention of heart disease Response Code Heart Disease Response Code:: Patient communicates acknowledgment, Family communicates acknowledgment, Patient returns demonstration and Family returns demonstration Diabetes Risk Factors Patient Diabetes Risk Factors Are:: No documented hx of diabetes Metabolic Syndrome Risk Factors Patient Metabolic Syndrome Risk Factors Are [3 of 5]:: Hypertension Recommendations Recommendations Include:: Encouraged follow-up with Primary Care Physician Response Code Metabolic Syndrome Response Code:: Patient communicates acknowledgment, Family communicates acknowledgment, Patient returns demonstration and Family returns demonstration Sedentary Recommendations Recommendations Include:: Aerobic exercise 5-7 times/week for 20-30 minutes continuously, Benefits of regular exercise, Discussed home walking program and Monitored Outpatient Cardiac Rehab Response Code Sedentary Response Code:: Patient communicates acknowledgment, Family communicates acknowledgment, Patient returns demonstration and Family returns demonstration Stress Risk Factors Patient Stress Risk Factors Are:: Patient denies stress as a risk factor
--- NOTE | 2024-02-27 09:46 | CL.I_ITS ---
Patient Name: MERCEDES MACIAS [facility] Study Date: 02/26/2024 Performing: Tree Freeman MD Ht: 74 inches 187.96 cm : 1955 Wt: 224.3 lbs 101.6 kg Age: 68 Gender: male BSA: 2.28 PROCEDURE(S) PERFORMED IC12-(07121/C9600)FREDY W/WO PTCA, SINGLE CORONARY ARTERY CLINICAL PROFILE AND CO-MORBIDITIES Indications: Other Heart Failure: None CONCLUSIONS Successful FREDY to proximal and mid RCA as described RECOMMENDATIONS DESCRIPTION OF PROCEDURE The patient arrived to the procedure lab. The risks and benefits of the procedure as well as a full description of our services here and current unavailability of surgical backup were fully explained to the patient and/or their significant other prior to the catheterization. The Timeout was completed, verifying the correct patient and procedure. The patient's procedural site was prepped and draped in the usual fashion. Local anesthetic was given subcutaneously to right radial region with Lidocaine 2%. Using a modified Seldinger technique, arterial access was obtained via the right radial artery, a 6Fr sheath was inserted.. Right Coronary Artery selective angiography was then performed in multiple views using a 5 Fr. JR 4 catheterThe images were reviewed and options discussed. A decision was then made to proceed with an Intervention, IVUS or other adjunct procedure. jr 4 Guide catheter was inserted and engaged into the RCA. bmw Guide wire was advanced to the RCA. emerge 2.25 x 12 Balloon catheter was advanced across lesion in the right coronary, mid. PTCA balloon inflated at 8 atms for 12 secs. emerge 2.25 x 12 Balloon catheter was advanced across lesion in the right coronary, mid. PTCA balloon inflated at 8 atms for 12 secs. emerge 2.25 x 12 Balloon catheter was advanced across lesion in the right coronary, proximal. PTCA balloon inflated at 8 atms for 13 secs. Angiogram performed post balloon dilatation. vanessa 2.5 x 38 Drug Eluting stent was advanced across the lesion in the right coronary, mid. Angiogram performed post stent deployment. Drug Eluting stent was advanced across the lesion in the right coronary, proximal. Angiogram performed post stent deployment. The arterial sheath was pulled and a TR Band was applied for hemostasis INTERVENTION INFORMATION LESION SITE: RCA (Proximal) Lesion Complexity: High/C, chronic total occlusion: No, lesion at bifurcation: No, thrombus present: No, lesion length: 17 mm, culprit lesion: Yes, Previously treated lesion: No Pre Stenosis: 95 % Pre intervention LUPIS flow: 3 PROCEDURE: Drug Eluting Stent with pre and post dilatation Post Stenosis: 0 % Post intervention LUPIS flow: 3 Lesion Devices: Cordis 6 Fr JR4 100cm Guide Catheter Bergeron .014 190cm BMW [place] Straight Terence Sci EMERGE MR 2.25x12 BALLOON Medtronic 2.50 x 18 VANESSA FRONTIER FREDY LESION SITE: RCA (Mid) Lesion Complexity: High/C, chronic total occlusion: No, lesion at bifurcation: Yes, thrombus present: No, lesion length: 37 mm, culprit lesion: Yes, Previously treated lesion: No Pre Stenosis: 80 % Pre intervention LUPIS flow: 3 PROCEDURE: Drug Eluting Stent with pre and post dilatation Post Stenosis: 0 % Post intervention LUPIS flow: 3 Lesion Devices: Cordis 6 Fr JR4 100cm Guide Catheter Bergeron .014 190cm BMW [place] Straight Terence Sci EMERGE MR 2.25x12 BALLOON Medtronic 2.50 x 38 VANESSA FRONTIER FREDY COMPLICATIONS No Complications PROCEDURE MEDICATIONS Fentanyl 50 mcg IV Versed 1 mg IV Oxygen: 2 L/min via nasal cannula Heparin given IA 02/26/2024 10:03:20 Heparin 5000 unit(s) IV 02/26/2024 10:04:17 Verapamil 2.5mg, Ntg 100mcgs, 3000 units of Heparin given IA 02/26/2024 10:03:20 SUMMARY OF HEMODYNAMIC DATA Time AIR REST ECG 08:43:03 AO 112/50 (72) SA 10:04:32 Signed By Tree Freeman MD On 02/27/2024 09:45:29 Tree Freeman MD
== END 2024-02-26 13:30 | disposition home or self-care (01) ==
PROVIDERS: PCP Family Medicine Geriatric Medicine; Referring Provider Specialist; Visit Provider Specialist
DX: I25.10 Atherosclerotic heart disease of native coronary artery without angina pectoris (principal); I10 Essential (primary) hypertension; R07.2 Precordial pain; E78.00 Pure hypercholesterolemia, unspecified; Z79.01 Long term (current) use of anticoagulants; Z79.82 Long term (current) use of aspirin; Z79.899 Other long term (current) drug therapy; Z87.891 Personal history of nicotine dependence; Z95.5 Presence of coronary angioplasty implant and graft
CPT/HCPCS: 92928; 99152; 99153; C1769; C1874; J7040; Q9967; C1725; C1887; C1894; C9600

== ENCOUNTER → 2024-06-16 | Outpatient (CLI) | payer MEDICARE, OTHER, SELFPAY ==
[2024-06-16 09:10] LABS: Absolute Lymphocyte Count 1.77 X10^3/uL (0.83-4.51); Absolute Neutrophil Count 2.9 X10^3/uL (2.0-7.7); Basophil# 0.04 X10^3/uL; Basophil% 0.8 % (0-1); Eosinophil# 0.11 X10^3/uL; Eosinophils% 2.1 % (0-5); Hematocrit 44.7 % (40-54); Hemoglobin 15.3 g/dL (13.0-16.5); Lymphocyte # 1.77 X10^3/ul (0.83-4.51); Lymphocyte % 33.8 % (19-41); Mean Corp Hgb Conc 34.2 g/dL (32-36); Mean Corpuscular Hgb 29.1 pg (27.0-32.0); Mean Platelet Vol. 9.9 fl (6.2-12.0); Monocyte# 0.43 X10^3/uL; Monocyte% 8.2 % (0-10); NRBC Flagged by Analyzer 0 % (0-5); Neutrophil # 2.88 X10^3/uL (2.7-7.7); Neutrophil % 54.9 % (47-70); Platelet Count 201 K/mm3 (150-450); RBC Distribution Width CV 12.4 % (11.6-14.6); RBC Distribution Width SD 38.1 fl (35.1-43.9); Red Blood Count 5.26 M/mm3 (4.6-6.2); White Blood Count 5.2 K/mm3 (4.4-11.0)
[2024-06-16 09:56] LABS: Vitamin D,25 Hydroxy 37.3 ng/mL
[2024-06-16 10:04] LABS: ALB/GLOB Ratio 1.2 RATIO (0.9-2.4); AST(SGOT) 22 U/L (15-37); Alanine Aminotransfer ALT/SGPT 43 U/L (16-61); Albumin, Serum 4.2 g/dL (3.2-5.0); Alkaline Phosphatase 67 U/L (45-117); Anion Gap 6 (5-15); BUN 21 mg/dL (7-18); BUN/Creat Ratio 20.6 RATIO (10-20); Calcium,Total 9.5 mg/dL (8.5-10.1); Chloride 105 mmol/L (98-107); Creatinine, Serum 1.02 mg/dL (0.70-1.30); EST Glomerular Filtration Rate 77 mL/min (>60); Est Glom Filt Rate - Afr Amer 93 mL/min (>60); Globulin 3.4 g/dL (2.2-4.2); Glucose 95 mg/dL (74-106); PSA,Total - Annual Screen 3.19 ng/mL (0.00-4.00); Potassium 3.5 mmol/L (3.5-5.1); Protein, Total 7.6 g/dL (6.4-8.2); Sodium Level 140 mmol/L (136-145)
== END | disposition home or self-care (01) ==
LOC: POLAB3 09:01
PROVIDERS: PCP Family Medicine Geriatric Medicine; Visit Provider Family Medicine Geriatric Medicine
DX: I10 Essential (primary) hypertension (principal); E55.9 Vitamin D deficiency, unspecified; Z12.5 Encounter for screening for malignant neoplasm of prostate
CPT/HCPCS: 36415; 80053; 82306; 84153; 84443; 85025; G0103

== ENCOUNTER → 2024-06-20 | Outpatient (CLI) | payer MEDICARE, OTHER, SELFPAY ==
--- NOTE | 2024-06-20 12:38 | CDU_ITS ---
Reason For Study: Right carotid bruit Rt. Velocities/BP Lt. Velocities/BP Prox CCA 59.8/12.6 cm/sec. Prox CCA 67.4/15.7 cm/sec. Mid CCA 44.7/12.6 cm/sec. Mid CCA 75.1/16.8 cm/sec. Dist CCA 45.6/16 cm/sec. Dist CCA 55.3/15.7 cm/sec. Prox ICA 103.5/33.5 cm/sec. Prox ICA 91.2/28.6 cm/sec. Mid ICA 92.5/24.9 cm/sec. Mid ICA 80.2/26.2 cm/sec. Dist ICA 90/24.9 cm/sec. Dist ICA 88.8/26.2 cm/sec. Rt. ICA/CCA = 2.32. Lt. ICA/CCA = 1.21. Prox ECA 268/24.7 cm/sec. Prox ECA 141.2/13.3 cm/sec. Rt. Vert. 43/9 cm/sec. Lt. Vert. 54.4/17.6 cm/sec. Right Extracranial There is homogeneous, smooth atherosclerotic plaque noted in the right common carotid artery. There is heterogeneous, irregular atherosclerotic plaque noted in the right internal carotid artery. There is heterogeneous, irregular atherosclerotic plaque noted in the right external carotid artery. Antegrade flow is noted in the right vertebral artery. Left Extracranial There is homogeneous, smooth atherosclerotic plaque noted in the left common carotid artery. There is heterogeneous, irregular atherosclerotic plaque noted in the left internal carotid artery. There is homogeneous, smooth atherosclerotic plaque noted in the left external carotid artery. Antegrade flow is noted in the left vertebral artery. Procedure Carotid Duplex [id number]. This is a Carotid Duplex examination using B-mode, color flow and specral Doppler. Exam performed in department. VL/Carotid Duplex Ultrasound Interpretation Summary Mild (<50%) stenosis right extracranial internal carotid. Mild (<50%) stenosis left extracranial internal carotid. Patent and antegrade vertebrals bilaterally. Ordering Physician: Coretta Lo Referring Physician: Devon Leigh Chi Performed By: Allyson Carvajal RVT
== END | disposition home or self-care (01) ==
PROVIDERS: PCP Family Medicine Geriatric Medicine; Referring Provider Physician Assistant Medical; Visit Provider Physician Assistant Medical
DX: R09.89 Other specified symptoms and signs involving the circulatory and respiratory systems (principal)
CPT/HCPCS: 93880

== ENCOUNTER → 2024-11-27 | Outpatient (CLI) | payer MEDICARE, OTHER, SELFPAY ==
--- NOTE | 2024-11-27 11:40 | RAD_ITS ---
EXAM: Ribs Uni lateral minimum three views with PA chest CLINICAL HISTORY: Bruise rib COMPARISON: 01/10/2024 TECHNIQUE: PA chest and four views right ribs, 5 total images FINDINGS: The lungs appear clear. No pneumothorax or pleural effusion identified. The cardiac and mediastinal contours appear within limits. No acute fracture or osseous lesion identified. RAD/Ribs Uni Min 3V w/PA Chest IMPRESSION: Study appears within limits as above. Reading Location: [id number]
== END | disposition home or self-care (01) ==
LOC: RAD 11:34
PROVIDERS: PCP Family Medicine Geriatric Medicine; Referring Provider Family Medicine Geriatric Medicine; Visit Provider Family Medicine Geriatric Medicine
DX: S20.211A Contusion of right front wall of thorax, initial encounter (principal); X58.XXXA Exposure to other specified factors, initial encounter
CPT/HCPCS: 71101

== ENCOUNTER → 2025-07-29 | Outpatient (CLI) | payer MEDICARE, OTHER, SELFPAY ==
[2025-07-29 10:22] LABS: Hematocrit 44.2 % (40-54); Hemoglobin 15.7 g/dL (13.0-16.5); Immature Granulocytes Count 0.010 X10^3/uL (0.0-0.0); Mean Corp Hgb Conc 35.5 g/dL (32-36); Mean Corpuscular Volume 82.5 fL (80-94); Mean Platelet Vol. 9.8 fl (6.2-12.0); NRBC Flagged by Analyzer 0 % (0-5); Platelet Count 220 K/mm3 (150-450); RBC Distribution Width CV 12.8 % (11.6-14.6); RBC Distribution Width SD 38.4 fl (35.1-43.9); Red Blood Count 5.36 M/mm3 (4.6-6.2); White Blood Count 5.6 K/mm3 (4.4-11.0)
[2025-07-29 11:11] LABS: AST(SGOT) 25 U/L (<=37); Alanine Aminotransfer ALT/SGPT 38 U/L (<=46); Albumin, Serum 4.5 g/dL (3.4-4.8); Alkaline Phosphatase 67 U/L (40-129); Anion Gap 11 (7-18); BUN 19 mg/dL (4-19); BUN/Creat Ratio 19.9 RATIO (10-20); Calcium,Total 9.6 mg/dL (7.6-11.0); Carbon Dioxide 27.4 mmol/L (20.0-29.0); Chloride 101 mmol/L (96-106); Globulin 2.7 g/dL (2.2-4.2); Glucose 92 mg/dL (70-99); Potassium 3.7 mmol/L (3.5-5.1); Vitamin D,25 Hydroxy 29.9 ng/mL (30-100)
[2025-07-29 17:30] LABS: Xtra Tube Kwok EXTRA TUBE
== END | disposition home or self-care (01) ==
LOC: POLAB3 10:08
PROVIDERS: PCP Family Medicine Geriatric Medicine; Visit Provider Family Medicine Geriatric Medicine
DX: I10 Essential (primary) hypertension (principal); E55.9 Vitamin D deficiency, unspecified
CPT/HCPCS: 36415; 80053; 82306; 84443; 85025